=== PATIENT | female | born 1970 | race Caucasian/White ===

== ENCOUNTER 2023-01-10 16:11 | Emergency (ER) | payer BC, OTHER ==
--- OUTSIDE RECORDS SUMMARY | 2023-01-10 16:15 | XMS REPORT | Continuity of Care Document ---
:1970 Author Organization [facility] t Address [address] [place] [address] [place] [address] Care Team Providers Name Role Phone ORAL TORRE Primary Care Physician Unavailable Trey Watson Attending Clinician Unavailable Oral Torre Attending Clinician Unavailable JOLANTA DE LA GARZA Attending Clinician Unavailable JAVIER GOMEZ Attending Clinician Unavailable Gt Harrell MD Attending Clinician GT HARRELL Attending Clinician Unavailable KRISTIN ROJAS Attending Clinician Unavailable Kristin Ponce Attending Clinician Doctor Unassigned, [place] Attending Clinician Unavailable Frederick Hernandez DO Attending Clinician Torsten Hall MD Attending Clinician Caterina Coombs RN Attending Clinician ERIC CAT Attending Clinician Unavailable Eric Cat MD Attending Clinician JOLANTA DE LA GARZA Admitting Clinician Unavailable ERIC CAT Admitting Clinician Unavailable Eric Cat MD Admitting Clinician Payers Payer Name Policy Type Policy Number Effective Date Expiration Date Uday albert AETNA CHOICE [id number] 2018 POS II 00:00:00 AETNA CHOICE [id number] 2000 POS II 00:00:00 AETNA 53 [id number] 2022 [facility] 00:00:00 - [facility] Blue Cross 6 [id number] [facility] t Blue Shield - [facility] AETNA C1 [id number] [facility] - [facility] C1 [id number] [facility] rit Plans [facility] Problems Condition Condition Condition Status Onset Resolution Last Treating Co mments Source Name Details Category Date Date Treatment Clinician Date C. C. Disease Active Univers difficile difficile 5-05 ity of colitis colitis 00:00: [place] [address] Medical Branch Ileitis Ileitis Disease Active Univers 5-04 ity of 00:00: [place] [address] Medical Branch [id number] Non-season Problem Com mon al Spirit allergic - CHI rhinitis, [facility] [id number] Age Problem Common related Spirit osteoporos - CHI is, [facility] pathologic Center al fracture presence [id number] Migraine Problem Comm on without Spirit aura and - CHI without [facility] migrainosu Medica l s, not Center intractabl e [id number] Mixed Problem Common hyperlipid Spirit emia - [facility] [id number] Moderate Problem Commo n major Spirit depression - CHI , single episode [facility] [id number] RLS Problem Common (restless Spirit legs - CHI syndrome) [facility] [id number] Diverticul Problem Co mmon osis large Spirit intestine - CHI w/o St perforatio [facility] n or Medical abscess Center w/o bleeding [id number] Primary Problem Common insomnia Spirit - [facility] [id number] SHARON Problem Common (generaliz Spirit ed anxiety - CHI disorder) [facility] [id number] Postmenopa Problem Co mmon usal Spirit symptoms - [facility] Center [id number] Arthritis Problem Co mmon [id number] of Spirit carpometac - [facility]I [facility] Center [id number] Arthritis Problem Co mmon [id number] of Spirit carpometac - [facility] Center thumb Allergies, Adverse Reactions, Alerts Allergy Allergy Status Severity Reaction(s) Onset Inactive Treating Comm ents Source Name Type Date Date Clinician SULFA Drug Active N/V Univers (SULFONA Class 5-03 ity of MIDE 00:00: [place] ANTIBIOT 00 Medical ICS) Branch Sulfa Propensi Active Nausea Univers (Sulfona ty to and/or 5-03 ity of mide adverse Vomiting 00:00: [place] Antibiot reaction 00 Medica l ics) s Branch CODEINE DRUG Active N/V 2014-09 Univers INGREDI 0-09 ity of 00:00: [place] 00 Medical Branch codeine DA Active [place] [facility] 8-05 [place] 00:00: d 00 Medical O[place] Codeine Codeine Active Unknown [facility] Social History Social Habit Start Date Stop Date Quantity Comments Source History SDOH University o f Alcohol Frequency [place] M edical Branch History SDOH University o f Alcohol Std [place] Medical Drinks Branch History SDOH University o f Alcohol Binge [place] Medic al Branch Exposure to Not sure University of SARS-CoV-2 [facility] (event) Branch History of [facility] - Tobacco Use [facility] Sex Assigned At [facility] Sp desiree - [facility] Alcohol intake 2021-03-15 2021-03-15 Current drinker Unive rsity of 00:00:00 00:00:00 of alcohol [place] [facility] (finding) Branch Alcohol Comment 2020-01-17 2020-01-17 rarely Universit y of 00:00:00 00:00:00 [facility] Tobacco use and 2019-01-09 2019-01-09 Never used Universit y of exposure 00:00:00 00:00:00 [facility] Smoking Status Start Date Stop Date Source Unknown if ever smoked [facility] Never Smoker [facility] Spirit [facility] Ce nter Former Smoker 2020-07-03 00:00:00 2020-07-03 00:00:00 Common S pirit [facility] Medications Ordered Filled Start Stop Current Ordering Indication Dosage Frequency Signature Comments Components Source Medication Medication Date Date Medication? Clinician (SIG) Name Name Cirilo Kerr 2022-0 3- No Azithromyc n 250 MG n 250 MG 09-30 in 250 MG 00:00: 00:00 00 :00 Aznabeelromsamantha Aguirrei 2022-0 3- No Azithromyc n 250 MG n 250 MG 09-25 in 250 MG 00:00: 00:00 00 :00 Phyllisromhilli Rodyci 2022-0 3- No Azithromyc n 250 MG n 250 MG 09-25 in 250 MG 00:00: 00:00 00 :00 methylPREDN methylPREDN 2022-0 3- No QD methylPRED ISolone 4 ISolone 4 09-24 NISolone 4 MG MG 00:00: 00:00 MG 00 :00 methylPREDN methylPREDN 3-0 3- No QD methylPRED ISolone 4 ISolone 4 09-24 NISolone 4 MG MG 00:00: 00:00 MG 00 :00 methylPREDN methylPREDN 3-0 3- No QD methylPRED ISolone 4 ISolone 4 09-24 NISolone 4 MG MG 00:00: 00:00 MG 00 :00 methylPREDN methylPREDN 3-0 3- No QD methylPRED ISolone 4 ISolone 4 09-24 NISolone 4 MG MG 00:00: 00:00 MG 00 :00 Estradiol Estradiol 2021-09 No 1{table QD Estradiol 0.5 MG 0.5 MG 1-11 t} 0.5 MG 00:00: 00 Prolia 60 Prolia 60 2021-09 No Prolia 60 MG/ML MG/ML 1-11 MG/ML 00:00: 00 Prolia 60 Prolia 60 2021-09 No Prolia 60 MG/ML MG/ML 1-11 MG/ML 00:00: 00 Estradiol Estradiol 2021-09 No 1{table QD Estradiol 0.5 MG 0.5 MG 1-11 t} 0.5 MG 00:00: 00 Estradiol Estradiol 2021-09 No 1{table QD Estradiol 0.5 MG 0.5 MG 1-11 t} 0.5 MG 00:00: 00 Prolia 60 Prolia 60 2021-09 No Prolia 60 MG/ML MG/ML 1-11 MG/ML 00:00: 00 Estradiol Estradiol 2021-09 No 1{table QD Estradiol 0.5 MG 0.5 MG 1-11 t} 0.5 MG 00:00: 00 Prolia 60 Prolia 60 2021-09 No Prolia 60 MG/ML MG/ML 1-11 MG/ML 00:00: 00 Estradiol Estradiol 2021-09 No 1{table QD Estradiol 0.5 MG 0.5 MG 1-11 t} 0.5 MG 00:00: 00 Prolia 60 Prolia 60 2021-09 No Prolia 60 MG/ML MG/ML 1-11 MG/ML 00:00: 00 Estradiol Estradiol 2021-09 No 1{table QD Estradiol 0.5 MG 0.5 MG 1-11 t} 0.5 MG 00:00: 00 Prolia 60 Prolia 60 2021-09 No Prolia 60 MG/ML MG/ML 1-11 MG/ML 00:00: 00 ondansetron 2020-0 Yes [id number] 4mg Take 1 Univers 4 mg 3-18 tablet by ity of disintegrat 00:00: mouth [place] ing tablet 00 every 8 Medica l (eight) Branch hours as needed for Nausea and Vomiting (N/V). Lidocaine Lidocaine 2019-09 No 10mg Com mon 0-19 Spirit 00:00: - [facility] Celestone Celestone 2019-09 No 6mg Com mon Soluspan Soluspan 0-19 Spirit (Betamethas (Betamethas 00:00: - CHI one) one) [facility] Lidocaine Lidocaine 2019-09 No 10mg Com mon 0-19 Spirit 00:00: - CHI 00 [facility] Celestone Celestone 2019-09 No 6mg Com mon Soluspan Soluspan 0-19 Spirit (Betamethas (Betamethas 00:00: - CHI one) one) [facility] Diclofenac Diclofenac 2019-09 No QID Diclofenac Common Sodium 1 % Sodium 1 % 0-19 Sodium 1 % Spirit 00:00: - [facility] Lidocaine Lidocaine 2019-09 No 10mg Com mon 0-19 Spirit 00:00: - [facility] Celestone Celestone 2019- No 6mg Com mon Soluspan Soluspan 0-19 Spirit (Betamethas (Betamethas 00:00: - CHI one) one) 00 [facility] Lidocaine Lidocaine 2019- No 10mg Com mon 0-19 Spirit 00:00: - CHI 00 [facility] Celestone Celestone 2019- No 6mg Com mon Soluspan Soluspan 0-19 Spirit (Betamethas (Betamethas 00:00: - CHI one) one) 00 [facility] Lidocaine Lidocaine 2019- No 10mg Com mon 0-19 Spirit 00:00: - CHI 00 [facility] Celestone Celestone 2019- No 6mg Com mon Soluspan Soluspan 0-19 Spirit (Betamethas (Betamethas 00:00: - CHI one) one) 00 [facility] Lidocaine Lidocaine 2019- No 10mg Com mon 0-19 Spirit 00:00: - [facility] Celestone Celestone 2019-09 No 6mg Com mon Soluspan Soluspan 0-19 Spirit (Betamethas (Betamethas 00:00: - CHI one) one) 00 [facility] zolpidem 2019-0 Yes 5mg Take 5 mg Univ ers (AMBIEN) 5 5-05 by mouth ity o f mg tablet 16:27: at [place] [address] bedtime. Medical Branch gabapentin 2019-0 Yes 300mg Take 300 Un aureliano 300 mg 5-05 mg by ity of capsule 16:27: mouth 2 [place] [address] (two) Medical times Branch daily. atorvastati 2019-0 Yes 10mg Take 10 mg Univers n 10 mg 5-05 by mouth ity of tablet 16:27: at [place] [address] bedtime. Medical Branch baclofen 5 2019-0 Yes 5mg Take 5 mg Un aureliano mg Tab 5-05 by mouth ity of 16:27: daily. [place] [address] Medical Branch SUMAtriptan 2018- Yes [id number] One U nivers 6 mg/0.5 mL 924 injection ity of injection 00:00: SQ at [place] [address] outset of Medical headache. Branch proMETHazin Yes [id number] 25mg Insert 1 Univers e 924 Suppositor ity of (PHENERGAN) 00:00: [place] 25 mg 00 rectum Medical suppository every 4 Branc h (four) hours as needed for Nausea and Vomiting (N/V). ketorolac 2016-0 Yes 10mg Take 1 Tab Un aureliano (TORADOL) 1-03 by mouth ity of 10 mg 00:00: every 6 [place] tablet 00 (six) Medical hours as Branch needed (MIGRAINE HEADACHE). Vitamin D3 Vitamin D3 No 1{table QD Vitamin D3 125 MCG 125 MCG t} 125 MCG (5000 UT) (5000 UT) (5000 UT) Atorvastati Atorvastati No 1{table QD Atorvastat n Calcium n Calcium t} in Calcium 10 MG 10 MG 10 MG Calcium Calcium No Calcium Zolpidem Zolpidem No 1{table QD Zolpidem Tartrate 5 Tartrate 5 t_at_be Tartrate 5 MG MG dtime} MG Ubrelvy 100 Ubrelvy 100 No QD Ubrelvy MG MG 100 MG No Vitamin Vitamin Vitamin Premarin Premarin No Premarin 0.625 MG/GM 0.625 MG/GM 0.625 MG/GM Gabapentin Gabapentin No 1{capsu BID Gabapentin 300 MG 300 MG le} 300 MG Vitamin D3 Vitamin D3 No 1{table QD Vitamin D3 125 MCG 125 MCG t} 125 MCG (5000 UT) (5000 UT) (5000 UT) Atorvastati Atorvastati No 1{table QD Atorvastat n Calcium n Calcium t} in Calcium 10 MG 10 MG 10 MG Ubrelvy Ubrelvy No Ubrelvy [facility] Gabapentin Gabapentin No 1{capsu BID Gabapentin 300 MG 300 MG le} 300 MG Zolpidem Zolpidem No 1{table QD Zolpidem Tartrate 5 Tartrate 5 t_at_be Tartrate 5 MG MG dtime} MG No Vitamin Vitamin Vitamin Ubrelvy 100 Ubrelvy 100 No QD Ubrelvy MG MG 100 MG Calcium Calcium No Calcium Premarin Premarin No Premarin 0.625 MG/GM 0.625 MG/GM 0.625 MG/GM Atorvastati Atorvastati No 1{table QD Atorvastat n Calcium n Calcium t} in Calcium 10 MG 10 MG 10 MG Vitamin D3 Vitamin D3 No 1{table QD Vitamin D3 125 MCG 125 MCG t} 125 MCG (5000 UT) (5000 UT) (5000 UT) Baclofen Baclofen No Baclofen Com mon [facility] Calcium Calcium No Calcium Vitamin D3 Vitamin D3 No 1{table QD Vitamin D3 125 MCG 125 MCG t} 125 MCG (5000 UT) (5000 UT) (5000 UT) Gabapentin Gabapentin No 1{capsu BID Gabapentin 300 MG 300 MG le} 300 MG No Vitamin Vitamin Vitamin Alendronate Alendronate No Alendronat Common Sodium Sodium e Sodium [facility] Premarin Premarin No Premarin 0.625 MG/GM 0.625 MG/GM 0.625 MG/GM Ubrelvy 100 Ubrelvy 100 No QD Ubrelvy MG MG 100 MG Zolpidem Zolpidem No 1{table QD Zolpidem Tartrate 5 Tartrate 5 t_at_be Tartrate 5 MG MG dtime} MG Atorvastati Atorvastati No 1{table QD Atorvastat n Calcium n Calcium t} in Calcium 10 MG 10 MG 10 MG Zolpidem Zolpidem No Zolpidem Com mon Tartrate Tartrate Tartrate [facility] Vitamin D3 Vitamin D3 No Vitamin D3 [facility] Calcium Calcium No Calcium Common [facility] Gabapentin Gabapentin No Gabapentin [facility] Calcium Calcium No Calcium Gabapentin Gabapentin No 1{capsu BID Gabapentin 300 MG 300 MG le} 300 MG No Vitamin Vitamin Vitamin Zolpidem Zolpidem No 1{table QD Zolpidem Tartrate 5 Tartrate 5 t_at_be Tartrate 5 MG MG dtime} MG Vitamin D3 Vitamin D3 No 1{table QD Vitamin D3 125 MCG 125 MCG t} 125 MCG (5000 UT) (5000 UT) (5000 UT) Premarin Premarin No Premarin 0.625 MG/GM 0.625 MG/GM 0.625 MG/GM Atorvastati Atorvastati No 1{table QD Atorvastat n Calcium n Calcium t} in Calcium 10 MG 10 MG 10 MG Ubrelvy 100 Ubrelvy 100 No QD Ubrelvy MG MG 100 MG Calcium Calcium No Calcium Gabapentin Gabapentin No 1{capsu BID Gabapentin 300 MG 300 MG le} 300 MG No Vitamin Vitamin Vitamin Zolpidem Zolpidem No 1{table QD Zolpidem Tartrate 5 Tartrate 5 t_at_be Tartrate 5 MG MG dtime} MG Vitamin D3 Vitamin D3 No 1{table QD Vitamin D3 125 MCG 125 MCG t} 125 MCG (5000 UT) (5000 UT) (5000 UT) Premarin Premarin No Premarin 0.625 MG/GM 0.625 MG/GM 0.625 MG/GM Atorvastati Atorvastati No 1{table QD Atorvastat n Calcium n Calcium t} in Calcium 10 MG 10 MG 10 MG Ubrelvy 100 Ubrelvy 100 No QD Ubrelvy MG MG 100 MG Calcium Calcium No Calcium Zolpidem Zolpidem No 1{table QD Zolpidem Tartrate 5 Tartrate 5 t_at_be Tartrate 5 MG MG dtime} MG Ubrelvy 100 Ubrelvy 100 No QD Ubrelvy MG MG 100 MG No Vitamin Vitamin Vitamin Premarin Premarin No Premarin 0.625 MG/GM 0.625 MG/GM 0.625 MG/GM Gabapentin Gabapentin No 1{capsu BID Gabapentin 300 MG 300 MG le} 300 MG Immunizations Ordered Immunization Filled Immunization Date Status Commen ts Source Name Name Lidocaine Lidocaine 2020-07-03 Completed [facility] 08:53:00 [facility] Cel[facility] Soluspan Celestone Soluspan 2020-07-03 Completed [facility] (Betamethasone) (Betamethasone) 08:52:00 [facility] Vital Signs Vital Name Observation Time Observation Value Comments Source height 2022-09-24 10:30:00 63.0 [in_i] [facility] weight 2022-09-24 10:30:00 133 [lb_av] [facility] bmi 2022-09-24 10:30:00 23.56 kg/m2 [facility] height 2022-07-26 09:00:00 63.0 [in_i] [facility] weight 2022-07-26 09:00:00 136 [lb_av] [facility] temperature 2022-07-26 09:00:00 97.3 [degF] [facility] 2022-07-26 09:00:00 24.09 kg/m2 [facility] oximetry 2022-07-26 09:00:00 98 % [facility] respiratory rate 2022-07-26 09:00:00 16 /min Comm on Spirit - [facility] blood pressure 2022-07-26 09:00:00 108 mm[Hg] [facility] - systolic [facility] blood pressure 2022-07-26 09:00:00 76 mm[Hg] [facility] - diastolic [facility] Systolic blood 2021-04-05 14:48:00 109 mm[Hg] [facility]iver [facility] Diastolic blood 2021-04-05 14:48:00 72 mm[Hg] Unive rsity [facility] Heart rate 2021-04-05 14:48:00 71 /min [facility] Body height 2021-04-05 14:48:00 162.6 cm [facility] Body weight 2021-04-05 14:48:00 63.05 kg [facility] BMI 2021-04-05 14:48:00 23.86 kg/m2 [facility] height 2020-07-03 08:00:00 63.5 [in_i] [facility] weight 2020-07-03 08:00:00 134 [lb_av] [facility] temperature 2020-07-03 08:00:00 97.1 [degF] Common [facility] bmi 2020-07-03 08:00:00 23.36 kg/m2 [facility] blood pressure 2020-07-03 08:00:00 109 mm[Hg] [facility] - systolic [facility] blood pressure 2020-07-03 08:00:00 84 mm[Hg] [facility] - diastolic [facility] Procedures This patient has no known procedures. Encounters Start End Encounter Admission Attending Care Care Encounter Source Date/Time Date/Time Type Type Clinicians Facility Department ID 2022-11-21 Outpatient Watson, STLMLC STLMLC [id number] Common 08:46:01 [facility] [address] [facility] 2022-11-18 Outpatient Watson, STLMLC STLMLC [id number] Common 09:08:01 [facility] [address] [facility] 2022-10-25 Outpatient Watson, STLMLC STLMLC [id number] Common 13:50:01 [facility] [address] [facility] 2022-09-23 Outpatient Watson, STLMLC STLMLC [id number] Common 08:42:01 [facility] [address] [facility] 2022-07-26 Outpatient Watson, STLMLC STLMLC [id number] Common 08:50:01 [facility] [address] [facility] 2022-07-24 Outpatient Feaver, STLMLC STLMLC [id number] Common 08:54:02 Oral [address] [facility] 2022-07-11 Outpatient Feaver, STLMLC STLMLC [id number] Common 10:27:01 Oral [facility] 2021-10-10 Outpatient Feaver, STLMLC STLMLC [id number] Common 11:56:14 Oral [address] [facility] 2021-07-15 Emergency [facility] [id number] Univers 06:49:40 ity [facility] 2021-07-15 Outpatient R CHARAFEDDIN [facility] LEONIE [id number] Univers 03:37:05 EJOLANTA ity [facility] 2021-07-14 Outpatient CHARAFEDDIN [facility] [id number] Univers 04:02:17 JOLANTA Gasca ity [facility] 2021-04-11 Outpatient [facility] [id number] [place] 15:46:51 Health 2021-04-06 Outpatient RADJERIN, [facility] [id number] [place] 12:32:43 [facility] 2022-09-30 2022-09-30 (TEL) STLC STLMLC [id number] Co mmon 00:00:00 00:00:00 [facility] 2022-09-25 2022-09-25 (TEL) STLMLC STLMLC [id number] Co mmon 00:00:00 00:00:00 [facility] 2022-09-24 2022-09-24 OFFICE STLMLC STLMLC [id number] Co mmon 00:00:00 00:00:00 VISIT EST Spir it PT LEVEL 3 - [facility] 2022-09-23 2022-09-23 (TEL) STLMLC STLMLC [id number] Co mmon 00:00:00 00:00:00 [facility] 2022-07-26 2022-07-26 OFFICE STLMLC STLMLC [id number] Co mmon 00:00:00 00:00:00 VISIT NEW Spir it PT LEVEL 4 - [facility] 2022-07-26 2022-07-26 (TEL) STLMLC STLMLC [id number] Co mmon 00:00:00 00:00:00 [facility] 2021-04-13 2021-04-13 Telephone CATHIE Gomez [facility] [id number] OR 00:00:00 00:00:00 Zoeylevy JETER [id number] H [facility] Emergency Department [id number] [address] [id number] [id number] 2021-04-05 2021-04-05 [facility] [id number] [facility] 10:11:12 23:59:00 Encounter [facility] [id number] ity of Surgical [id number] Joey as Specialti [phone] Il dical es 809 Branch [place] 2021-04-05 2021-04-05 Office [facility] [id number] Univers 09:47:14 10:40:50 Visit [facility] [employer] [id number] it y of SURGICAL 4.2.7.2.686 Joey as SPECIALTI [id number] Il dical ES 198 Branch [place] 2021-04-05 2021-04-05 Outpatient R SHARRI [facility] [id number] Univers 10:00:00 10:00:00 GT handy [facility] 2021-03-27 2021-03-27 Outpatient Yrn ROJAS [facility] [id number] Univers 10:45:00 10:45:00 [facility] 2021-03-21 2021-03-21 Telephone Crystal [facility] [id number] Univers 00:00:00 00:00:00 [facility] [id number] it y of Surgical 4.2.7.2.686 Joey as Specialti [id number] Il dical es 198 [facility] 2021-03-19 2021-03-19 Orders Doctor JOHNNA [id number] Univers 00:00:00 00:00:00 Only Unassigned, ALEE [id number] ity of [place] [facility] 4.2.7.2.686 Joey as [id number] [address] 2021-03-15 2021-03-15 Outpatient R CRYSTAL [facility] [id number] Univers 11:00:00 11:00:00 [facility] 2021-03-15 2021-03-15 Office Gt Harrell [facility] 1.2.840. [id number] Univers 09:27:52 09:50:55 Visit Kristin Rojas [facility] [id number] ity of Surgical 4.2.7.2.686 Joey as Specialti [phone] Il dical es 198 [facility] 2021-03-05 2021-03-05 Office Crystal [facility] [id number] Univers 14:47:35 15:42:49 Visit [facility] [id number] it y of Surgical 4.2.7.2.686 Joey as Specialti [id number] Il dical es 198 [facility] 2021-03-05 2021-03-05 Outpatient Yrn ROJAS [facility] [id number] Univers 15:00:00 15:00:00 KRISTIN ity of [facility] 2021-03-05 2021-03-05 Orders Doctor JOHNNA [id number] Univers 00:00:00 00:00:00 Only Unassigned, ALEE [id number] ity of [place] [facility] 4.2.7.2.686 Joey as [phone] [facility] [address] [place] 2020-12-30 2020-12-30 Outpatient [facility] [id number] Univers 09:30:00 09:30:00 ity of [facility] 2020-11-30 2020-11-30 Emergency Hernandez, [facility] [id number] Univers 08:47:00 11:44:00 Frederick Henson [id number] i ty [facility] 4.2.7.2.686 [place] [id number] [place] [id number] Branch 2020-11-30 2020-11-30 Orders Doctor JOHNNA [id number] Univers 00:00:00 00:00:00 Only Unassigned, ALEE [id number] ity of [place] [facility]OSP[facility] 4.2.7.2.686 Joey as [id number] [address] 2020-11-21 2020-11-21 [facility] [id number] Univers 11:30:00 11:30:00 JOLANTA Gasca o f [facility] 2020-07-03 2020-07-03 [facility] [id number] Common 00:00:00 00:00:00 OFFICE Spirit - [facility] 2020-05-23 2020-05-23 [facility] [id number] Univers 00:00:00 00:00:00 Torsten Henson [id number] ity [facility] 4.2.7.2.686 [place] [facility] [phone] [place] [id number] [facility] 2020-01-19 2020-01-19 Transition Farnaz Coombs 1.2.840.114 [id number] 00:00:00 00:00:00 of Care Caterina Blackmon [id number] [place] 4.2.7.2.686 [id number] [facility] 2020-01-19 2020-01-19 Transition Farnaz Coombs 1.2.840.114 [id number] Univers 00:00:00 00:00:00 of Care Caterina Encinasy [id number] i ty of [place] 4.2.7.2.686 [facility] [id number] [facility] 403 Branch 2020-01-16 2020-01-18 Inpatient X NEFTALY [facility] [id number] Univers 22:11:31 15:59:00 ADNAN ity of [facility] 2020-01-16 2020-01-18 [facility] 1.2.840.1 [id number] [facility] 22:11:31 15:59:00 Encounter Eric Cat [id number] ity [facility] 4.2.7.2.686 [facility] [place] [id number] [facility] 081 Branch 2020-01-16 2020-01-18 [facility] 1.2.840.1 [id number] 22:11:31 15:59:00 Encounter Eric Cat [id number] [place] 4.2.7.2.686 [place] [id number] [id number] Results Test Description Test Time Test Comments Results Result Comments Source SURG 2019-04-07 13:15:00 RUN DATE: 04/07/19 [facility] - LAB *LIVE* PAGE 1 RUN TIME: 1316 Specimen Inquiry RUN USER: INTERFACE PAT IENT: BECKY GRIMES LOC: CHEMO U #: [id number] AGE/SX: 49/F ROOM: RE04/06/19[facility] DR: Modesta Powell : 66 BED: DIS: STATUS: DEP [facility] TLOC: SPEC #: [id number] RECD: 04/06/19 STATUS: CLAUDIA REQ #: [id number] REBEKAH: 04/06/[address]: Modesta Powell MD ENTERED: 04/06/19 SP TYPE: SURG OTHR DR: No Primary or Family PhysicianORDERED: SURG PATH LVL 4 COPIES TO: No Primary or Family Physician Modesta Powell MD [address] [place] [address] HISTOLOGY: TISSUE ID BLK PCS JOYCE LEV PROCEDURE DISPOSITION ____ ___ ___ ___ OVARY, NOS A 1 1 PROCEDURES: SURG PATH LVL 4 (04/06/19) TISSUES: A. OVARY, NOS - LEFT OVARY AND FALLOPIAN TUBE CLINICAL HISTORY PELVIC AND PERINEAL PAIN -R10.2 CPT CODES CPT CODE(S): 21345 , , , , , , FINAL DIAGNOSIS Fallopian tube and ovary, left, salpingo-oophorecto my: CORPORA ALBICANTIA AND FOLLICULAR CYST FALLOPIAN TUBE WITH PARATUBAL CYSTS GROSS DESCRIPTION Left ovary and fallopian tube. Received in formalin is a 3.7 gram left salpingo-oophorecto my specimen consisting only of the fimbriated end of the fallopian tube, 1.7 x 1.2 x 1.2 cm and ovary, 3.0 x 2.8 x 0.8 cm. The ovary is stanley-brown and solid with few white-stanley cysts, 0.5 cm in greatest dimension. The entire specimen submitted as A1 - A4. ba/nr Grossing performed at [facility] Pathology, [address], [address], CONTINUED ON NEXT PAGE RUN DATE: 04/07/19 [facility] - LAB *LIVE* PAGE 2 RUN TIME: 1316 Specimen Inquiry RUN USER: INTERFACE LEAH Burrows #: [facility]:[id number] PATIENT: BECKY GRIMES #[id number] (Continued)-------- -------- GROSS DESCRIPTION (Continued) [place], [place] [address]. Boatswains Mate: Tyrone Mcfarland M.D. MICROSCOPIC DESCRIPTION Left ovary and fallopian tube. Sections demonstrate portions of fallopian tube with paratubal cysts. Sections inserted ovarian tissue with corpora albicantia and follicular cysts. No evidence of malignant or atypical features are identified.-------- -------- Signed SIGNATURE ON FILE Pj Madrigal 04/07/19 1315 END OF REPORT URINALYSIS DIPSTICK 2019-04-02 14:06:00 Test Item Value Reference Range Interpretation Comme nts UA GLUCOSE DIPSTICK (test code = DGLUU) NEGATIVE mg/dL NEG UA BILIRUBIN DIPSTICK (test code = BILU) NEGATIVE mg/dL NEG UA KETONE DIPSTICK (test code = KETU) NEGATIVE mg/dL NEG UA SPECIFIC GRAVITY (test code = SGU) 1.015 SG 1.005-1.030 UA BLOOD DIPSTICK (test code = LATOYA) NEGATIVE mg/DL NEG UA PH DIPSTICK (test code = DEISI) 5.5 pH UNITS 5.0-7.0 UA PROTEIN DIPSTICK (test code = PROU) NEGATIVE mg/dL NEG UA UROBILINIOGEN DIPSTICK (test code = URO) 0.2 mg/dL <2.0 UA NITRITE DIPSTICK (test code = VICKY) NEGATIVE SCREEN NEG UA LEUKOCYTE ESTERASE DIPSTICK (test code = LEUU) NEGATIVE Leuk/mcL NEGATIVE Urine Specimen Type: Clean CatchCBC W/AUTO [id number] 13:49:00 Test Item Value Reference Range Interpretation Comments WHITE BLOOD CELL (test code = 6.5 K/mm3 3.5-11.0 N WBC) RED BLOOD CELL (test code = RBC) 4.50 M/mm3 4.70-6.10 L HEMOGLOBIN (test code = HGB) 13.2 G/DL 10.4-14.9 N HEMATOCRIT (test code = HCT) 41.6 % 31.5-44.1 N MEAN CELL VOLUME (test code = 92.4 Fl 84.5-98.6 N MCV) MEAN CELL HGB (test code = MCH) 29.3 pg 27.0-34.2 N MEAN CELL HGB CONCETRATION (test 31.7 G/DL 31.5-34.0 N code = MCHC) RED CELL DISTRIBUTION WIDTH (test 14.2 SD 11.5-14.5 N code = RDW) PLATELET COUNT (test code = PLT) 318.0 K/mm3 150-450 N MEAN PLATELET VOLUME (test code = 9.90 fL 7.0-10.5 N MPV) NEUTROPHIL % (test code = NT%) 63.2 % 40-76 N LYMPHOCYTE % (test code = LY%) 28.8 % 20.5-51.1 N MONOCYTE % (test code = MO%) 6.6 % 1.7-9.3 N EOSINOPHIL % (test code = EO%) 1.2 % 0.0-6.0 N BASOPHIL % (test code = BA%) 0.2 % 0.0-2.0 N NEUTROPHIL # (test code = NT#) 4.10 K/mm3 1.8-7.6 N LYMPHOCYTE # (test code = LY#) 1.9 K/mm3 0.6-3.2 N MONOCYTE # (test code = MO#) 0.4 K/mm3 0.3-1.1 N EOSINOPHIL # (test code = EO#) 0.1 K/mm3 0.0-0.4 N BASOPHIL # (test code = BA#) 0.0 K/mm3 0.0-0.1 N MANUAL DIFF REQUIRED (test code = NO DIFF/SCN CRITERIA MDIFF) COMPREHENSIVE METABOLIC [id number] 06:34:00 Test Item Value Reference Range Interpretation Comments SODIUM (test code = 141.0 mmol/L 133-144 N NA) POTASSIUM (test code 4.3 mmol/L 3.5-5.1 N = K) CHLORIDE (test code 110 mmol/L 95-105 H = CL) CARBON DIOXIDE (test 30 mmol/L 21-32 N code = CO2) ANION GAP (test code 1.0 GAP calc 4.0-15.0 L = GAP) GLUCOSE (test code = 96 MG/DL 70-110 N GLU) BLOOD UREA NITROGEN 8 MG/DL 7-18 N (test code = BUN) GLOMERULAR 83 estGFR >60 The estimated FILTRATION RATE glomerular (test code = GFR) filtration rate is computed usingpatient ra ce, age, sex, and s jamia creatinine. If any of theneeded da ta elements are mi ssing the Laboratory can notcompute an estimation of t he glomerular filtration rate .The GFR value units = ml/min/1.73 met er squared. EstimatedGFR va lues above 60 should be interpreted as >60, not anexact number.--- DRUG DOSAGE ALERT -- - Drug dosage adjustments uti lize different calculationpara meter s. CREATININE (test 0.74 MG/DL 0.55-1.30 N Results may be code = CREAT) depressed if p atient is takingN-Acetylc ystei ne (NAC) and Metamizole (Dipyrone). TOTAL PROTEIN (test 6.5 G/DL 6.4-8.2 N code = PROT) ALBUMIN (test code = 3.3 G/DL 3.4-5.0 L ALB) ALBUMIN/GLOBULIN 1.0 RATIO 1.2-2.2 L RATIO (test code = A/G) CALCIUM (test code = 7.9 MG/DL 8.5-10.1 L CA) BILIRUBIN TOTAL 0.26 MG/DL 0.00-1.00 N (test code = BILT) BILIRUBIN DIRECT 0.12 MG/DL 0.00-0.30 N (test code = BILD) BILIRUBIN INDIRECT 0.14 MG/DL 0.2-1.3 L (test code = BILIND) SGOT/AST (test code 16 Unit/L 15-37 N = AST) SGPT/ALT (test code 14 Unit/L 12-78 N = ALT) ALKALINE PHOSPHATASE 56 Unit/L 45-117 N TOTAL (test code = ALKP) INDEX HEMOLYSIS 1 NORMAL <10 1 NORMAL (test code = MG Index/DL HEMINDEX) INDEX ICTERIC (test 1 NORMAL <2 MG 1 NORMAL code = ICTINDEX) Index/DL INDEX LIPEMIA (test 1 NORMAL <50 1 NORMAL code = LIPINDEX) MG Index/DL Comments to Oil Mixer: ED BRIDGE ORDERSCOMPREHENSIVE METABOLIC PANEL 2019-02-26 06:30:00 Test Item Value Reference Range Interpretation Comments SODIUM (test code = NA) 141.0 mmol/L 133-144 N POTASSIUM (test code = K) 4.3 mmol/L 3.5-5.1 N CHLORIDE (test code = CL) 110 mmol/L 95-105 H CARBON DIOXIDE (test code 30 mmol/L 21-32 N = CO2) ANION GAP (test code = 1.0 GAP calc 4.0-15.0 L GAP) GLUCOSE (test code = GLU) 96 MG/DL 70-110 N BLOOD UREA NITROGEN (test 8 MG/DL 7-18 N code = BUN) CREATININE (test code = MG/DL 0.55-1.30 CREAT) TOTAL PROTEIN (test code G/DL 6.4-8.2 = PROT) ALBUMIN (test code = ALB) 3.3 G/DL 3.4-5.0 L ALBUMIN/GLOBULIN RATIO RATIO 1.2-2.2 (test code = A/G) CALCIUM (test code = CA) 7.9 MG/DL 8.5-10.1 L BILIRUBIN TOTAL (test MG/DL 0.00-1.00 code = BILT) BILIRUBIN DIRECT (test MG/DL 0.00-0.30 code = BILD) BILIRUBIN INDIRECT (test MG/DL 0.2-1.3 code = BILIND) SGOT/AST (test code = Unit/L 15-37 AST) SGPT/ALT (test code = Unit/L 12-78 ALT) ALKALINE PHOSPHATASE Unit/L 45-117 TOTAL (test code = ALKP) INDEX HEMOLYSIS (test 1 NORMAL <10 MG 1 NORMAL code = HEMINDEX) Index/DL INDEX ICTERIC (test code 1 NORMAL <2 MG 1 NORMAL = ICTINDEX) Index/DL INDEX LIPEMIA (test code 1 NORMAL <50 MG 1 NORMAL = LIPINDEX) Index/DL Comments to Oil Mixer: ED BRIDGE ORDERSCBC W/AUTO [id number] 06:18:00 Test Item Value Reference Range Interpretation Comments WHITE BLOOD CELL (test code = 8.9 K/mm3 4.1-12.1 N WBC) RED BLOOD CELL (test code = RBC) 4.08 M/mm3 3.8-5.5 N HEMOGLOBIN (test code = HGB) 12.0 G/DL 10.6-15.8 N HEMATOCRIT (test code = HCT) 37.3 % 31.8-47.4 N MEAN CELL VOLUME (test code = 91.4 fL 80.1-101.1 N MCV) MEAN CELL HGB (test code = MCH) 29.4 pg 25.3-35.3 N MEAN CELL HGB CONCETRATION (test 32.2 G/DL 32.7-35.1 L code = MCHC) RED CELL DISTRIBUTION WIDTH 13.8 % 12.2-16.4 N (test code = RDW) RED CELL DISTRIBUTION WIDTH 46.3 fL 36.4-46.3 N (test code = RDW-SD) PLATELET COUNT (test code = PLT) 270 K/mm3 155-337 N MEAN PLATELET VOLUME (test code 9.9 fL 6.8-11.2 N = MPV) GRANULOCYTE % (test code = GR%) 81.8 % 37.8-82.6 N IMMATURE GRANULOCYTE % (test 0.3 % 0.0-2.0 N code = IG%) LYMPHOCYTE % (test code = LY%) 13.4 % 14.1-45.4 L MONOCYTE % (test code = MO%) 3.9 % 2.5-11.7 N EOSINOPHIL % (test code = EO%) 0.4 % 0.0-6.2 N BASOPHIL % (test code = BA%) 0.2 % 0.0-2.1 N NUCLEATED RBC % (test code = 0.0 /100WBC% 0.0-1.0 N NRBC%) GRANULOCYTE # (test code = GR#) 7.30 k/mm3 2.0-13.7 N IMMATURE GRANULOCYTE # (test 0.03 K/mm3 0.00-0.03 N code = IG#) LYMPHOCYTE # (test code = LY#) 1.20 K/mm3 0.6-3.8 N MONOCYTE # (test code = MO#) 0.35 K/mm3 0.11-0.59 N EOSINOPHIL # (test code = EO#) 0.04 K/mm3 0.0-0.4 N BASOPHIL # (test code = BA#) 0.02 K/mm3 0.0-0.1 N NUCLEATED RBC # (test code = 0.00 K/mm3 0.0-0.05 N NRBC#) Comments to Oil Mixer: ED BRIDGE ORDERS- CT ABD PELVIS [id number] 14:32:00 Patient Name: BECKY GRIMES Unit No: [id number] EXAMS: CPT CODE: [id number] CT ABD PELVIS W/CONT 57842 CT Abdomen and Pelvis with and without contrast. Location: B2 Clinical indication: 48-year-old with abdominal pain. Recent CT and concern for ovarian vein abnormality. Comparison: February 25, 2019 Technique: Computed axial images were obtained from the diaphragms through the pubic symphysis both before and after the IV administration of 100 mL Isovue-300. Up to date CT equipment and radiation dose technique were utilized. Findings: Abdomen: Lung bases are clear. The partially visualized liver, spleen, gallbladder, kidneys, adrenal glands, and bowel are unremarkable. No obvious abnormality of the right gonadal vein. No adjacent inflammatory stranding. Pelvis: Urinary bladder is partially distended. No free pelvic fluid. The uterus is absent. No acute osseous abnormality. Impression: No acute abnormality to account for patient's symptoms. at 1432 Reported and signed by: Salo Tan MD CC: Reed Potts MD Dictated Date/Time: 02/25/2019 (1432) Technologist: Jung Hendrix CTDI: 9.39 DLP: [phone] Trnscrpt: 02/25/2019 (1432) Vitor CABRERARB24 [facility] Vani NAME: BECKY GRIMES [address] [place] [address] Blvd PHYS: Reed Sparks MD, [place] [address] : 1970 AGE: 48 SEX: F LOC: B.ERS PHONE #: [phone] EXAM DATE: 02/25/2019 STATUS: REG ER FAX #: [phone] RAD #: D/C DT PAGE 1 Signed Report Patient Name: BECKY GRIMES Unit No: [id number] EXAMS: CPT CODE: [id number] CT ABD PELVIS W/CONT 76219 (Continued) Orig Print D/T: S: 02/25/2019 (1435) SAIDA Ludwig NAME: BECKY GRIMES [address] [place] [address] PHYS: Reed Sparks MD [place], [place] [address] : 1970 AGE: 48 SEX: F LOC: B.ERS PHONE #: [phone] EXAM DATE: 02/25/2019 STATUS: REG ER FAX #: [phone] RAD #: D/C DT PAGE 2 Signed Report- CT ABD PELVIS [id number] 12:21:00 Patient Name: BECKY GRIMES Unit No: [id number] EXAMS: CPT CODE: [id number] CT ABD PELVIS W/CONT 01679 LOCATION: T18 CT abdomen and pelvis with IV contrast INDICATION: Abdominal pain Axial CT images obtained with IV contrast at 5 mm slice thickness. The patient was given 75 mL Isovue 300 contr ast intravenously. Up to date CT and radiation dose reduction techniques were utilized. Automatic exposure control was also used. CT ABDOMEN: Lung bases are clear. No pleural effusion. The liver, gallbladder, spleen, pancreas, adrenal glands, kidneys, aorta and IVC are within normal limits. No free fluid, free air or adenopathy. Bowel loops are normal. Appendix surgically absent. Probable mixing artifact within the right ovarian vein. CT PELVIS: The urinary bladder is normally distended. The uterus is surgically absent. No pelvic free fluid, mass or adenopathy. IMPRESSION: No acute findings identified, status post appendectomy and hysterectomy. Probable mixing artifact within right ovarian vein. If there is strong clinical concern for ovarian vein thrombosis, would repeat CT exam with triple phase protocol. at 1221 Reportedand signed by: Johnna Saab D.O. CC: Reed Potts MD Dictated Date/Time: 02/25/2019 (1221) Cari hnologist: Jung Hendrix CTDI: 9.73 DLP: 504.54 Trnscrpt: 02/25/2019 (1221) Romel SAIDA Ludwig NAME: BECKY GRIMES [address] [place] [address] PHYS: [place] [address] : 1970 AGE: 48 SEX: F LOC: B.ERS PHONE #: [phone] EXAM DATE: 02/25/2019 STATUS: REG ER FAX #: [phone] RAD #: D/C DT PAGE 1 Signed Report Patient Name: BECKY GRIMES Unit No: [id number] EXAMS: CPT CODE: [id number] CT ABD PELVIS W/CONT 14880 (Continued) Orig Print D/T: S: 02/25/2019 (1225) SAIDA Ludwig NAME: BECKY GRIMES [address] [place] [address] PHYS: LIANGJESSICABe Celia Reed Potts MD [place] [address] : 1970 AGE: 48 SEX: F LOC: B.ERS PHONE #: [phone] EXAM DATE: 02/25/2019 STATUS: REG ER FAX #: [phone] RAD #: D/C DT PAGE 2 Signed ReportCOMPREHENSIVE METABOLIC [id number] 11:15:00 Test Item Value Reference Range Interpretation Comments SODIUM (test code = 141.0 mmol/L 133-144 N NA) POTASSIUM (test code 4.1 mmol/L 3.5-5.1 N = K) CHLORIDE (test code 104 mmol/L 95-105 N = CL) CARBON DIOXIDE (test 31 mmol/L 21-32 N code = CO2) ANION GAP (test code 6.0 GAP calc 4.0-15.0 N = GAP) GLUCOSE (test code = 103 MG/DL 70-110 N GLU) BLOOD UREA NITROGEN 7 MG/DL 7-18 N (test code = BUN) GLOMERULAR 73 estGFR >60 The estimated FILTRATION RATE glomerular (test code = GFR) filtration rate is computed usingpatient ra ce, age, sex, and s jamia creatinine. If any of theneeded da ta elements are mi ssing the Laboratory can notcompute an estimation of t he glomerular filtration rate .The GFR value units = ml/min/1.73 met er squared. EstimatedGFR va lues above 60 should be interpreted as >60, not anexact number.--- DRUG DOSAGE ALERT -- - Drug dosage adjustments uti lize different calculationpara meter s. CREATININE (test 0.83 MG/DL 0.55-1.30 N Results may be code = CREAT) depressed if p atient is takingN-Acetylc ystei ne (NAC) and Metamizole (Dipyrone). TOTAL PROTEIN (test 7.9 G/DL 6.4-8.2 N code = PROT) ALBUMIN (test code = 4.0 G/DL 3.4-5.0 N ALB) ALBUMIN/GLOBULIN 1.0 RATIO 1.2-2.2 L RATIO (test code = A/G) CALCIUM (test code = 9.0 MG/DL 8.5-10.1 N CA) BILIRUBIN TOTAL 0.42 MG/DL 0.00-1.00 N (test code = BILT) BILIRUBIN DIRECT < 0.10 MG/DL 0.00-0.30 N (test code = BILD) BILIRUBIN INDIRECT CALC LINDA MG/DL 0.2-1.3 L (test code = BILIND) SGOT/AST (test code 20 Unit/L 15-37 N = AST) SGPT/ALT (test code 23 Unit/L 12-78 N = ALT) ALKALINE PHOSPHATASE 60 Unit/L 45-117 N TOTAL (test code = ALKP) INDEX HEMOLYSIS 1 NORMAL <10 1 NORMAL (test code = MG Index/DL HEMINDEX) INDEX ICTERIC (test 1 NORMAL <2 MG 1 NORMAL code = ICTINDEX) Index/DL INDEX LIPEMIA (test 1 NORMAL <50 1 NORMAL code = LIPINDEX) MG Index/DL [id number] 11:15:00 Test Item Value Reference Range Interpretation Comments LIPASE (test code = LIP) 148 Unit/L 114-286 N PROCALCITONIN (PCT)2019-02-25 11:15:00 Test Item Value Reference Range Interpretation Comments PROCALCITONIN (PCT) < 0.05 NG/ML 0.00-0.10 N PROCALCI TONIN (PCT) (test code = PROCAL) NORMAL RANGE (ADULT) <0.05 NG/ML-nor mal <0.50 NG/ML-low risk of severe sepsis a nd/or septic shock >2 .00 NG/ML-high risk of severe sepsis a nd/or septic shcock Concentrations of <0.5 ng/mL do not ex clude an infection.Local ized infections (wit hout systemic signs) or a systemicinfecti on in its initial sta ges (<6 hours) can be associatedwith such low concentrations. It is recommended to retestPCT withi n 6-24 hours if concen trations <2 NG/ML. COMPREHENSIVE METABOLIC [id number] 11:14:00 Test Item Value Reference Range Interpretation Comments SODIUM (test code = NA) 141.0 mmol/L 133-144 N POTASSIUM (test code = K) 4.1 mmol/L 3.5-5.1 N CHLORIDE (test code = CL) 104 mmol/L 95-105 N CARBON DIOXIDE (test code mmol/L 21-32 = CO2) ANION GAP (test code = GAP calc 4.0-15.0 GAP) GLUCOSE (test code = GLU) 103 MG/DL 70-110 N BLOOD UREA NITROGEN (test 7 MG/DL 7-18 N code = BUN) CREATININE (test code = MG/DL 0.55-1.30 CREAT) TOTAL PROTEIN (test code G/DL 6.4-8.2 = PROT) ALBUMIN (test code = ALB) G/DL 3.4-5.0 ALBUMIN/GLOBULIN RATIO RATIO 1.2-2.2 (test code = A/G) CALCIUM (test code = CA) 9.0 MG/DL 8.5-10.1 N BILIRUBIN TOTAL (test MG/DL 0.00-1.00 code = BILT) BILIRUBIN DIRECT (test MG/DL 0.00-0.30 code = BILD) BILIRUBIN INDIRECT (test MG/DL 0.2-1.3 code = BILIND) SGOT/AST (test code = Unit/L 15-37 AST) SGPT/ALT (test code = Unit/L 12-78 ALT) ALKALINE PHOSPHATASE Unit/L 45-117 TOTAL (test code = ALKP) INDEX HEMOLYSIS (test 1 NORMAL <10 MG 1 NORMAL code = HEMINDEX) Index/DL INDEX ICTERIC (test code 1 NORMAL <2 MG 1 NORMAL = ICTINDEX) Index/DL INDEX LIPEMIA (test code 1 NORMAL <50 MG 1 NORMAL = LIPINDEX) Index/DL [id number] 11:14:00 Test Item Value Reference Range Interpretation Comments LIPASE (test code = LIP) Unit/L 114-286 PROCALCITONIN (PCT)2019-02-25 11:14:00 Test Item Value Reference Range Interpretation Comments PROCALCITONIN (PCT) < 0.05 NG/ML 0.00-0.10 N PROCALCI TONIN (PCT) (test code = PROCAL) NORMAL RANGE (ADULT) <0.05 NG/ML-nor mal <0.50 NG/ML-low risk of severe sepsis a nd/or septic shock >2 .00 NG/ML-high risk of severe sepsis a nd/or septic shcock Concentrations of <0.5 ng/mL do not ex clude an infection.Local ized infections (wit hout systemic signs) or a systemicinfecti on in its initial sta ges (<6 hours) can be associatedwith such low concentrations. It is recommended to retestPCT withi n 6-24 hours if concen trations <2 NG/ML. COMPREHENSIVE METABOLIC [id number] 10:24:00 Test Item Value Reference Range Interpretation Comments SODIUM (test code = NA) mmol/L 133-144 POTASSIUM (test code = K) mmol/L 3.5-5.1 CHLORIDE (test code = CL) mmol/L 95-105 CARBON DIOXIDE (test code = CO2) mmol/L 21-32 ANION GAP (test code = GAP) GAP calc 4.0-15.0 GLUCOSE (test code = GLU) MG/DL 70-110 BLOOD UREA NITROGEN (test code = MG/DL 7-18 BUN) CREATININE (test code = CREAT) MG/DL 0.55-1.30 TOTAL PROTEIN (test code = PROT) G/DL 6.4-8.2 ALBUMIN (test code = ALB) G/DL 3.4-5.0 ALBUMIN/GLOBULIN RATIO (test code = RATIO 1.2-2.2 A/G) CALCIUM (test code = CA) MG/DL 8.5-10.1 BILIRUBIN TOTAL (test code = BILT) MG/DL 0.00-1.00 BILIRUBIN DIRECT (test code = BILD) MG/DL 0.00-0.30 BILIRUBIN INDIRECT (test code = MG/DL 0.2-1.3 BILIND) SGOT/AST (test code = AST) Unit/L 15-37 SGPT/ALT (test code = ALT) Unit/L 12-78 ALKALINE PHOSPHATASE TOTAL (test Unit/L 45-117 code = ALKP) [id number] 10:24:00 Test Item Value Reference Range Interpretation Comments LIPASE (test code = LIP) Unit/L 114-286 PROCALCITONIN (PCT)2019-02-25 10:24:00 Test Item Value Reference Range Interpretation Comments PROCALCITONIN (PCT) < 0.05 NG/ML 0.00-0.10 N PROCALCI TONIN (PCT) (test code = PROCAL) NORMAL RANGE (ADULT) <0.05 NG/ML-nor mal <0.50 NG/ML-low risk of severe sepsis a nd/or septic shock >2 .00 NG/ML-high risk of severe sepsis a nd/or septic shcock Concentrations of <0.5 ng/mL do not ex clude an infection.Local ized infections (wit hout systemic signs) or a systemicinfecti on in its initial sta ges (<6 hours) can be associatedwith such low concentrations. It is recommended to retestPCT withi n 6-24 hours if concen trations <2 NG/ML. CBC W/AUTO [id number] 09:58:00 Test Item Value Reference Range Interpretation Comments WHITE BLOOD CELL (test code = 6.6 K/mm3 4.1-12.1 N WBC) RED BLOOD CELL (test code = RBC) 4.44 M/mm3 3.8-5.5 N HEMOGLOBIN (test code = HGB) 13.1 G/DL 10.6-15.8 N HEMATOCRIT (test code = HCT) 39.8 % 31.8-47.4 N MEAN CELL VOLUME (test code = 89.6 fL 80.1-101.1 N MCV) MEAN CELL HGB (test code = MCH) 29.5 pg 25.3-35.3 N MEAN CELL HGB CONCETRATION (test 32.9 G/DL 32.7-35.1 N code = MCHC) RED CELL DISTRIBUTION WIDTH 13.5 % 12.2-16.4 N (test code = RDW) RED CELL DISTRIBUTION WIDTH 44.7 fL 36.4-46.3 N (test code = RDW-SD) PLATELET COUNT (test code = PLT) 308 K/mm3 155-337 N MEAN PLATELET VOLUME (test code 10.1 fL 6.8-11.2 N = MPV) GRANULOCYTE % (test code = GR%) 66.3 % 37.8-82.6 N IMMATURE GRANULOCYTE % (test 0.3 % 0.0-2.0 N code = IG%) LYMPHOCYTE % (test code = LY%) 24.3 % 14.1-45.4 N MONOCYTE % (test code = MO%) 7.7 % 2.5-11.7 N EOSINOPHIL % (test code = EO%) 0.8 % 0.0-6.2 N BASOPHIL % (test code = BA%) 0.6 % 0.0-2.1 N NUCLEATED RBC % (test code = 0.0 /100WBC% 0.0-1.0 N NRBC%) GRANULOCYTE # (test code = GR#) 4.40 k/mm3 2.0-13.7 N IMMATURE GRANULOCYTE # (test 0.02 K/mm3 0.00-0.03 N code = IG#) LYMPHOCYTE # (test code = LY#) 1.61 K/mm3 0.6-3.8 N MONOCYTE # (test code = MO#) 0.51 K/mm3 0.11-0.59 N EOSINOPHIL # (test code = EO#) 0.05 K/mm3 0.0-0.4 N BASOPHIL # (test code = BA#) 0.04 K/mm3 0.0-0.1 N NUCLEATED RBC # (test code = 0.00 K/mm3 0.0-0.05 N NRBC#) URINALYSIS [id number] 09:42:00 Test Item Value Reference Range Interpretation Comments UA COLOR (test code = YELLOW DESCRIPT YELLOW COLU) UA APPEARANCE (test code CLEAR DESCRIPT CLEAR = APPU) UA GLUCOSE DIPSTICK (test NEGATIVE (0) mg/dL (NEG) 0 code = DGLUU) UA BILIRUBIN DIPSTICK NEGATIVE (0) mg/dL (NEG) 0 (test code = BILU) UA KETONE DIPSTICK (test 0 (NEG) mg/dL (NEG) 0 code = KETU) UA SPECIFIC GRAVITY (test 1.008 SG 1.001-1.035 code = SGU) UA BLOOD DIPSTICK (test NEGATIVE (0) mg/DL (NEG) 0 code = LATOYA) UA PH DIPSTICK (test code 6.0 pH UNITS 4.6-8.0 = DEISI) UA PROTEIN DIPSTICK (test NEGATIVE (0) mg/dL <30 (1+) code = PROU) UA UROBILINIOGEN DIPSTICK NORMAL (0) mg/dL <2.0 (1+) (test code = URO) UA NITRITE DIPSTICK (test NEGATIVE (0) SCREEN NEG code = VICKY) UA LEUKOCYTE ESTERASE NEGATIVE (0) (NEG) 0 DIPSTICK (test code = Leuk/mcL LEUU) UA WBC (test code = WBCU) 0-3 #WBC/HPF 0-3 UA RBC (test code = RBCU) NONE #RBC/HPF 0-3 UA SQUAMOUS CELLS (test FEW >2 /HPF NONE-SQepi code = SQU) UA MUCUS (test code = RARE /LPF NONE MUCU)
[2023-01-10 16:51] LABS: Absolute Lymphocytes (CBC) 1.8 K/uL (0.7-4.9); Hematocrit 37.6 % (36.0-45.0); Lymphocytes % 18.7 % (15.3-44.8); MPV 8.3 fL (7.6-11.3); RBC Red Blood Cell Count 4.17 M/uL (3.86-4.86)
[2023-01-10 17:30] LABS: Bilirubin Total 0.3 mg/dL (0.2-1.0); Potassium 4.3 mEq/L (3.5-5.1); Protein, Total 7.5 g/dL (6.4-8.2)
--- NOTE | 2023-01-10 18:12 | RAD REPORT ---
EXAM DESCRIPTION: CT - Abdomen Pelvis W Contrast - 01/10/2023 5:47 pm CLINICAL HISTORY: Abdominal pain/lower abdominal pain COMPARISON: 2010 TECHNIQUE: Computed axial tomography of the abdomen pelvis was obtained. 100 cc Isovue-300 was admin istered intravenously. Oral contrast was not requested which limits evaluation of bowel and appendix All CT scans are performed using dose optimization technique as appropriate and may include automated exposure control or mA/KV adjustment according to patient size. FINDINGS: The liver, spleen, pancreas, adrenal and kidneys appear unremarkable. Diverticulum stems from the sigmoid colon. There is small amount of ill-defined fluid surrounding the sigmoid colon at this level. No abscess. No free air. This is compatible diverticulitis. Mild anterior subluxation L5 on S1. Spondylolysis L5 Hysterectomy 1.5 centimeter round structure posterior to the left renal artery IMPRESSION: Mild sigmoid diverticulitis 1.5 centimeter round structure posterior to the left renal artery. It is uncertain if this is vascul ar or a lymph node. Followup ultrasound in 2 months is recommended for re-evaluation
[2023-01-10] MEDS ORDERED: KETOROLAC 30 MG/ML INJ ONE (18:16)
[2023-01-10] MEDS ORDERED: ONDANSETRON 4 MG/2 ML VIAL ONE (18:16)
[2023-01-10] MEDS ORDERED: NA CHLORIDE 0.9% 1,000 ML ONE (18:16)
[2023-01-10] MEDS ORDERED: metroNIDAZOLE 500 MG TABLET ONE (18:35)
[2023-01-10] MEDS ORDERED: levoFLOXacin 750 MG TAB ONE (18:35)
--- NOTE | 2023-01-10 18:52 | ER ---
Nurse's Notes [facility] Name: Nanci Ramires Age: 52 yrs Sex: Female : 1970 Arrival Date: 01/10/2023 Time: 16:11 Bed 8 Private MD: Diagnosis: Acute sigmoid diverticulitis Presentation: 01/10 16:32 Chief complaint: Patient states: Pt contacted MD office r/t ongoing lower abdominal cm9 pain x 1 day; MD recommended pt. go to ER for potential diverticulitis flare. Coronavirus screen: Vaccine status: Patient reports receiving the 2nd dose of the covid vaccine. At this time, the client does not indicate any symptoms associated with coronavirus-19. Ebola Screen: No symptoms or risks identified at this time. Initial Sepsis Screen: Does the patient meet any 2 criteria? No. Patient's initial sepsis screen is negative. Does the patient have a suspected source of infection? No. Patient's initial sepsis screen is negative. Risk Assessment: Do you want to hurt yourself or someone else? Patient reports no desire to harm self or others. Onset of symptoms was January 10, 2023 at 16:35. 16:32 Method Of Arrival: Ambulatory cm9 16:32 Acuity: HALINA 3 cm9 Triage Assessment: 16:35 General: Appears in no apparent distress. comfortable, Behavior is calm, cooperative, cm9 appropriate for age. Pain: Complains of pain in suprapubic area, right lower quadrant and left lower quadrant Pain currently is 8 out of 10 on a pain scale. Pain began 1 day ago. Neuro: Level of Consciousness is awake, alert, Oriented to person, place, time, situation. Cardiovascular: Capillary refill < 3 seconds Patient's skin is warm and dry. Respiratory: Airway is patent Respiratory effort is even, unlabored. GI: Abdomen is distended, Reports bloating, constipation, cramping, Pain is 8 out of 10 on a pain scale. : Denies burning with urination, urgency. 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 - Social history:: Smoking status: Patient denies any tobacco usage or history of. Patient uses alcohol, occasionally. Screenin:[facility] ED Fall Risk Assessment (Adult) History of falling in the last 3 months, bp including since admission No falls in past 3 months (0 pts). Abuse screen: Denies threats or abuse. Denies injuries from another. Nutritional screening: No deficits noted. Tuberculosis screening: No symptoms or risk factors identified. Assessment: 17:45 General: PT RECD FROM TRIAGE. bp 18:32 Reassessment: Patient appears in no apparent distress at this time. Patient and/or bp family updated on plan of care and expected duration. Pain level reassessed. 19:04 Reassessment: DC HOME AMBULATORY. bp Vital Signs: 16:32 BP 115 / 81; Pulse 86; Resp 20; Temp 98.2; Pulse Ox 97% on R/A; Weight 61.23 kg; Height cm9 5 ft. 2 in. ; Pain 8/10; 18:32 BP 121 / 92; Pulse 70; Resp 16; Pulse Ox 98% ; bp 16:32 Body Mass Index 24.69 (61.23 kg, 157.48 cm) cm9 16:32 Pain Scale: Adult cm9 ED Course: 16:15 Patient arrived in ED. mr 16:22 Roshan Salomon PA is PHCP. jmm 16:22 Binh Gómez DO is Attending Physician. jmm 16:35 Triage completed. cm9 16:35 Arm band placed on right wrist. cm9 16:39 Inserted saline lock: 20 gauge in right antecubital area, using aseptic technique. cm9 Blood collected. 17:01 Radiology exam delayed due to lab results not completed at this time. (BUN/Creatinine). [id number] 17:49 CT Abd/Pelvis - IV Contrast Only In Process Unspecified. EDMS 17:57 Oral Dickerson, RN is Primary Nurse. bp 18:33 Patient has correct armband on for positive identification. Bed in low position. Call bp light in reach. Side rails up X2. 19:04 No provider procedures requiring assistance completed. IV discontinued, intact, bp bleeding controlled, No redness/swelling at site. Pressure dressing applied. Administered Medications: 18:17 Drug: NS 0.9% IV 1000 ml Route: IV; Rate: 1 bolus; Site: right antecubital; bp 19:06 Follow up: IV Status: Completed infusion; IV Intake: 1000ml bp 18:17 Drug: TORadol - Ketorolac IVP 15 mg Route: IVP; Site: right antecubital; bp 18:32 Follow up: Response: No adverse reaction bp 18:17 Drug: Ondansetron IVP 4 mg Route: IVP; Site: right antecubital; bp 18:32 Follow up: Response: No adverse reaction bp 18:32 Drug: LevOfloxacin PO 750 mg Route: PO; bp 19:05 Follow up: Response: No adverse reaction bp 18:32 Drug: metroNIDAZOLE PO 500 mg Route: PO; bp 19:05 Follow up: Response: No adverse reaction bp Medication: 19:04 VIS not applicable for this client. bp Intake: 19:06 IV: 1000ml; Total: 1000ml. bp Outcome: 18:51 Discharge ordered by . jamil 19:04 Discharged to home ambulatory. bp 19:04 Condition: stable 19:04 Discharge instructions given to patient, Instructed on discharge instructions, follow up and referral plans. medication usage, Demonstrated understanding of instructions, follow-up care, medications, Prescriptions given X 3. 19:06 Patient left the ED. bp Signatures: Dispatcher [employer] EDMS Roshan Salomon PA PA jmm Rivera, Mary mr Oral Dickerson, RACHEAL RN Tania RichardsPepper Pham RN RN cm9 Corrections: (The following items were deleted from the chart) 16:36 16:35 PSHx: Hemorrhoidectomy; cm9 cm9
--- NOTE | 2023-01-10 18:52 | EDPHYS ---
Physician Documentation [facility] Name: Nanci Ramires Age: 52 yrs Sex: Female : 1970 Arrival Date: 01/10/2023 Time: 16:11 Bed 8 Private MD: ED Physician Binh Gómez HPI: 01/10 18:47 This 52 yrs old Female presents to ER via Ambulatory with complaints of Abdominal Pain. jmm 18:47 The patient presents with abdominal pain. Onset: The symptoms/episode began/occurred jmm gradually. The symptoms do not radiate. Associated signs and symptoms: Pertinent positives: nausea. The symptoms are described as achy. This is a 52 year old female with a history of diverticulitis that presents to the ED with complaints of LLQ abdominal pain. Denies vomiting. Denies fever. Pain occurs after eating. . 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 - Social history:: Smoking status: Patient denies any tobacco usage or history of. Patient uses alcohol, occasionally. ROS: 18:47 Constitutional: Negative for fever, chills, and weight loss, Cardiovascular: Negative jmm for chest pain, palpitations, and edema, Respiratory: Negative for shortness of breath, cough, wheezing, and pleuritic chest pain. 18:47 Abdomen/GI: Positive for abdominal pain. 18:47 All other systems are negative. Exam: 18:47 Constitutional: This is a well developed, well nourished patient who is awake, alert, jmm and in no acute distress. Head/Face: atraumatic. Eyes: EOMI, no conjunctival erythema appreciated ENT: Moist Mucus Membranes Neck: Trachea midline, Supple Chest/axilla: Normal chest wall appearance and motion. Cardiovascular: Regular rate and rhythm. No edema appreciated Respiratory: Normal respirations, no respiratory distress appreciated 18:47 Back: Normal ROM Skin: General appearance color normal MS/ Extremity: Moves all extremities, no obvious deformities appreciated, no edema noted to the lower extremities Neuro: Awake and alert Psych: Behavior is normal, Mood is normal, Patient is cooperative and pleasant 18:47 Abdomen/GI: Inspection: abdomen appears normal, Bowel sounds: normal, Palpation: soft, mild abdominal tenderness, in the left lower quadrant. Vital Signs: 16:32 BP 115 / 81; Pulse 86; Resp 20; Temp 98.2; Pulse Ox 97% on R/A; Weight 61.23 kg; Height cm9 5 ft. 2 in. ; Pain 8/10; 18:32 BP 121 / 92; Pulse 70; Resp 16; Pulse Ox 98% ; bp 16:32 Body Mass Index 24.69 (61.23 kg, 157.48 cm) cm9 16:32 Pain Scale: Adult cm9 MDM: 16:39 Patient medically screened. [facility] 18:49 Differential diagnosis: diverticulitis, non-specific abd pain, Peptic Ulcer Disease, jmm Perf. Duodenal Ulcer, Perf. Gastric Ulcer. Data reviewed: vital signs, nurses notes, lab test result(s), radiologic studies, CT scan. Consideration of Admission/Observation. I considered the following discharge prescriptions or medication management in the emergency department Medications were administered in the Emergency Department. See MAR. External Records Reviewed: [employer] aware no recent opioids rx. Counseling: I had a detailed discussion with the patient and/or guardian regarding: the historical points, exam findings, and any diagnostic results supporting the discharge/admit diagnosis, lab results, radiology results, the need for outpatient follow up, to return to the emergency department if symptoms worsen or persist or if there are any questions or concerns that arise at home. ED course: Pain is relieved in the ED. Labs unremarkable. Patient given oral abx. Given strict return precautions. patient understood and agrees with the plan of care. . 01/10 16:39 Order name: CBC with Diff; Complete Time: 17:56 [facility] 01/10 16:39 Order name: CMP; Complete Time: 17:56 [facility] 01/10 16:39 Order name: Lipase; Complete Time: 17:56 [facility] 01/10 16:39 Order name: CT Abd/Pelvis - IV Contrast Only; Complete Time: 18:15 [facility] 01/10 16:39 Order name: IV Saline Lock; Complete Time: 16:40 [facility] 01/10 16:39 Order name: Labs collected and sent; Complete Time: 16:40 [facility] Administered Medications: 18:17 Drug: NS 0.9% IV 1000 ml Route: IV; Rate: 1 bolus; Site: right antecubital; bp 19:06 Follow up: IV Status: Completed infusion; IV Intake: 1000ml bp 18:17 Drug: TORadol - Ketorolac IVP 15 mg Route: IVP; Site: right antecubital; bp 18:32 Follow up: Response: No adverse reaction bp 18:17 Drug: Ondansetron IVP 4 mg Route: IVP; Site: right antecubital; bp 18:32 Follow up: Response: No adverse reaction bp 18:32 Drug: LevOfloxacin PO 750 mg Route: PO; bp 19:05 Follow up: Response: No adverse reaction bp 18:32 Drug: metroNIDAZOLE PO 500 mg Route: PO; bp 19:05 Follow up: Response: No adverse reaction bp Disposition: 19:36 Co-signature as Attending Physician, Binh JUSTIN was immediately available on-site ms3 in the Emergency Department for consultation in the care of the patient. Disposition Summary: 01/10/23 18:51 Discharge Ordered Location: Home [facility] Condition: Stable [facility] Diagnosis - Acute sigmoid diverticulitis [facility] Followup: [facility] - With: Private Physician - When: 2 - 3 days - Reason: Recheck today's complaints, Continuance of care, Re-evaluation by your physician Discharge Instructions: - Discharge Summary Sheet [facility] - Diverticulitis [facility] Forms: - Medication Reconciliation Form [facility] - Thank You Letter [facility] - Antibiotic Education [facility] - Prescription Opioid Use [facility] Prescriptions: - levofloxacin 750 mg Oral tablet - take 1 tablet by ORAL route daily for 10 days; 10 tablet; Refills: 0, Product [facility] Selection Permitted - Ultracet 37.5-325 mg Oral Tablet - take 1 tablet by ORAL route every 6 hours - for up to 5 days; do not exceed 8 jmm tablets per day.; 30 tablet; Refills: 0, Product Selection Permitted - Metronidazole 500 mg Oral Tablet - take 1 tablet by ORAL route every 8 hours; 30 tablet; Refills: 0, Product [facility] Selection Permitted Signatures: Dispatcher [employer] EDRoshan Breen PA PA jmm Peltier, Brian RN RN Binh Ceron DO DO ms3 Pepper Roth RN RN cm9 Corrections: (The following items were deleted from the chart) 16:36 16:35 PSHx: Hemorrhoidectomy; cm9 cm9
[2023-01-10 19:11] VITALS: TEMP 98.2
[2023-01-10 19:12] VITALS: BP 121/92; O2SAT 98
== END 2023-01-10 19:06 | disposition home or self-care (01) ==
LOC: ER 16:11
DX: K57.32 Diverticulitis of large intestine without perforation or abscess without bleeding (principal); Z88.5 Allergy status to narcotic agent
CPT/HCPCS: 85025; 36415; 83690; 80053; 74177; Q9967; J2405; J7030; 96361; 96374; 96375; 99284